=== PATIENT | female | born 1970 | race Caucasian/White ===

== ENCOUNTER 2021-05-06 15:04 | Emergency (ER) | payer OTHER, SELFPAY ==
[2021-05-06 15:14] VITALS: BP 112/64; PULSE 72; RESP 18; TEMP 36.8; O2SAT 98
--- NOTE | 2021-05-06 15:41 | ED.EAR ---
HPI - Ear Problem General Chief complaint: Ear Stated complaint: Ear Pain Time Seen by Provider: 05/06/21 15:41 Source: patient Mode of arrival: ambulatory Limitations: no limitations History of Present Illness HPI Narrative: Brandi Huff is a 50 yo female with PMH of HTN, depression, vascular with left ear pain for the past 2 to 3 days. She states that like she has fluid in her ear and is moving in her jaw Patient has not been vaccinated; states she had mastoiditis in the past that resulted in a hospitalization and she is concerned about any type of ear pain Related Data Home Medications Medication Instructions Recorded Confirmed amlodipine [Norvasc] 10 mg PO DAILY 05/06/21 05/06/21 citalopram 10 mg PO DAILY 05/06/21 05/06/21 Allergies Allergy/AdvReac Type Severity Reaction Status Date / Time codeine Allergy Unknown Verified 02/07/20 11:02 Review of Systems Review of Systems: CONSTITUTIONAL: Denies fever, chills, sweats. EYES: Denies visual changes, redness, discharge. ENT: Denies rhinorrhea, congestion, sore throat, left otalgia. CARDIOVASCULAR: Denies chest pain, palpitations, edema. RESPIRATORY: Denies dyspnea, wheezing, cough GASTROINTESTINAL: Denies abdominal pain, nausea, vomiting, diarrhea. GENITOURINARY: Denies dysuria, hematuria, abnormal discharge SKIN: Denies rash or itching. NEUROLOGIC: Denies numbness, or focal weakness. PSYCHIATRIC: Denies anxiety or depression. PMFSH Past Medical History Medical History Depression HTN (hypertension) Family History Family History (Updated 05/06/21 @ 15:49 by Bernadette Saunders CNP) Other Hypertension Social History Social History (Updated 05/06/21 @ 15:49 by Bernadette Saunders CNP) Smoking status: Never smoker Alcohol intake: current Comments At time of signature, I agree with nursing past medical, surgical, social and family history. There is no relevant family history pertinent to the presenting complaint. Exam Narrative: GENERAL: This is a well-nourished, well-developed patient, in mild distress. HEAD: normocephalic, atraumatic. EYES: Sclera clear/white. Vision is grossly intact. EARS: External ears normal, auditory canals erythema and without drainage, TMs normal without perforation. Hearing grossly intact. NOSE: External nose normal without nasal discharge, nares with redness, no rhinorrhea. THROAT: Mucous membranes moist, posterior pharynx mild erythema NECK: Neck supple, left-sided tenderness CARDIOVASCULAR: Regular rate and rhythm without murmurs, gallops, or rubs. RESPIRATORY: Clear to auscultation. Breath sounds equal bilaterally. No wheezes, rales, or rhonchi. GASTROINTESTINAL: Abdomen soft, SKIN: warm, intact with no suspicious lesions or rash, good texture and turgor. NEURO: awake, alert, and oriented to person, place and time. There were no obvious focal neurologic abnormalities. Steady gait EXTREMITIES: Normal range of motion. BACK: Nontender without deformity Course Course Emergency Course: Patient comes with left ear pain that started 3 to 4 days ago Amoxicillin 875 twice daily and Zyrtec recommended patient restart Flonase Vital Signs Vital signs: Vital Signs Temperature 98.3 F 05/06/21 15:14 Pulse Rate 72 05/06/21 15:14 Respiratory Rate 18 05/06/21 15:14 Blood Pressure 112/64 05/06/21 15:14 Pulse Oximetry 98 05/06/21 15:14 Temperature 98.3 F 05/06/21 15:14 Pulse Rate 72 05/06/21 15:14 Respiratory Rate 18 05/06/21 15:14 Blood Pressure 112/64 05/06/21 15:14 Pulse Oximetry 98 05/06/21 15:14 Medical Decision Making Differential Diagnosis Differential Diagnosis: Otitis media versus otitis externa versus eustachian tube dysfunction Vital Signs Vital Signs: Vital Signs Temperature 98.3 F 05/06/21 15:14 Pulse Rate 72 05/06/21 15:14 Respiratory Rate 18 05/06/21 15:14 Blood Pressure 112/64 05/06/21 15:14 Pulse
== END 2021-05-06 16:15 | disposition home or self-care (01) ==
PROVIDERS: Emergency Provider Nurse Practitioner
DX: H66.002 Acute suppurative otitis media without spontaneous rupture of ear drum, left ear (principal); R09.81 Nasal congestion; I10 Essential (primary) hypertension; F32.9 Major depressive disorder, single episode, unspecified
CPT/HCPCS: 99213; G0463

== ENCOUNTER 2022-07-14 13:20 | Emergency (ER) | payer OTHER, SELFPAY ==
[2022-07-14 13:28] VITALS: BP 175/93; PULSE 101; RESP 18; TEMP 36.6; O2SAT 99
--- NOTE | 2022-07-14 13:29 | ED.EAR ---
HPI - Ear Problem General Chief complaint: Ear Stated complaint: Left Ear Irritation Source: patient and RN notes reviewed Mode of arrival: ambulatory Limitations: no limitations History of Present Illness HPI Narrative: 51-year-old female presents concern for left ear pain. Reports several week history of nasal congestion, rhinorrhea. She reports chills. She denies drainage out of the ears, reports decreased hearing. MD Complaint: ear pain Related Data Home Medications Medication Instructions Recorded Confirmed amlodipine 10 mg tablet (Norvasc) 10 mg PO DAILY 05/06/21 07/14/22 citalopram 10 mg/5 mL oral solution 10 mg PO DAILY 05/06/21 07/14/22 Allergies Allergy/AdvReac Type Severity Reaction Status Date / Time codeine Allergy Unknown Other Verified 07/14/22 13:23 Review of Systems Review of Systems: CONSTITUTIONAL: Reports malaise, chills. Denies sweats, or fever. EYES: Denies visual changes, redness, or discharge. ENT: Reports rhinorrhea, congestion. Reports bilateral ear pain, worse CARDIOVASCULAR: Denies chest pain, palpitations, or edema. RESPIRATORY: Reports cough and wheezing. Denies dyspnea. GASTROINTESTINAL: Denies abdominal pain, nausea, vomiting, diarrhea SKIN: Denies rash or itching. MUSCULOSKELETAL: Denies myalgia. NEUROLOGIC: Denies headache. All systems reviewed & are unremarkable except as noted in HPI and below PMFSH Past Medical History Medical History (Updated 07/14/22 @ 13:39 by Nathaly Garcia NP) Depression HTN (hypertension) Family History Family History (System 03/09/22 @ 14:46 by Ha Matthews) Other Hypertension Social History Social History (System 03/09/22 @ 14:46 by Ha Matthews) Smoking status: Never smoker Alcohol intake: current Comments At time of signature, agree with nursing past medical, surgical, social and family history. There is no relevant family history pertinent to the presenting complaint Exam Narrative: GENERAL: Well-appearing, well-nourished, and in no acute distress. HEAD: Normocephalic EYES: PERRLA, conjunctivae clear ENT: Nares clear, turbinates edematous, clear discharge. Mucous membranes moist. TM purulence bulging bilaterally; no tragal tenderness. Oropharynx not erythematous without lesions. Tonsils not enlarged and without exudate, no drooling, no hoarseness, no trismus, uvula midline. NECK: Supple. No lymphadenopathy CHEST: Clear to auscultation, breath sounds equal. No wheezing, rhonchi, rales, or stridor. No respiratory distress, speaks in full sentences. Cough noted HEART: Regular rate and rhythm. No murmur heard. SKIN: Warm, dry, no rash. NEURO: Alert and oriented x3. PSYCH: Normal mood and affect Course Course Emergency Course: Patient is aware of diagnosis, understands and agrees to treatment plan. Anticipatory guidance given. Patient agrees to follow-up as directed and is aware of reasons to seek care at the emergency department. Portions of this record may have been created with voice recognition software Level of Care: Express Care Visit Vital Signs Vital signs: Reviewed. Medical Decision Making MDM Narrative Medical decision making narrative: Differential diagnosis considered: Dotson virus, strep pharyngitis, allergic rhinitis, upper respiratory tract infection, sinusitis, rhinosinusitis, nasopharyngitis. viral pharyngitis, otitis media, otitis externa, otitis effusion, cerumen impaction, foreign body. Exam findings show no acute concerns or changes; patient is non-toxic appearing and is in no distress. Patient is appropriate for outpatient treatment and follow-up. Critical Care Time Critical Care Time Critical Care Time: No Discharge Plan Discharge Clinical Impression: Bronchitis Otitis media Qualifiers: Otitis media type: suppurative Chronicity: acute Laterality: bilateral Recurrence: non-recurrent Spontaneous tympanic membrane rupture: without spontaneous rupture Qualified Code(s): H66.003 - Acute
== END 2022-07-14 13:45 | disposition home or self-care (01) ==
PROVIDERS: Emergency Provider Nurse Practitioner; PCP Family Medicine
DX: J40 Bronchitis, not specified as acute or chronic (principal); H66.003 Acute suppurative otitis media without spontaneous rupture of ear drum, bilateral; I10 Essential (primary) hypertension; F32.A Depression, unspecified
CPT/HCPCS: 99213; G0463

== ENCOUNTER 2023-02-28 19:16 | Emergency (ER) | payer OTHER, SELFPAY ==
--- NOTE | 2023-02-28 19:23 | ED.URI ---
HPI - URI/Sore Throat General Chief Complaint: Upper Respiratory Infection Stated Complaint: ear,nose,and throat problem Time Seen by Provider: 02/28/23 19:24 Source: patient Mode of arrival: ambulatory Limitations: no limitations History of Present Illness HPI Narrative: Isabel is a 52-year-old female patient presenting to the clinic today with complaints of sinus pressure, yellow nasal drainage, coughing up yellow phlegm, and bilateral ear pain. She reports she has had chronic sinusitis over the last year. Will supposed to see a ENT specialist however she decided not to go. She denies any fever chills but is complaining of ringing in her ears and worsening of sinus pressure. Has been taking aspirin and Benadryl to treat her symptoms. MD elicited complaint: cough, rhinorrhea, nasal congestion and sinus pain Related Data Allergies Allergy/AdvReac Type Severity Reaction Status Date / Time codeine Allergy Unknown Itching Verified 02/28/23 19:26 Review of Systems Review of Systems: Pertinent positives per HPI. Patient denies any fever, chills, rash, headache, visual changes, dizziness, cough, shortness of breath, chest pain, palpitations, nausea, vomiting, diarrhea, constipation, abdominal pain, or any urinary issues. PMFSH Past Medical History Medical History Depression HTN (hypertension) Family History Family History Other Hypertension Social History Social History Smoking status: Never smoker Alcohol intake: current Comments At the time of my signature, I reviewed and agree with the nursing past medical, surgical, social, and family history. There is no relevant family history pertinent to the patient complaint. Exam Narrative: General: Well-developed, well nourished, in no apparent distress Head: Normocephalic, atraumatic Eyes: Pupils equally round and reactive to light bilaterally, EOM intact, sclera and conjunctive clear, no discharge, lids normal Ears: TMs intact and clear, ear canals clear, no drainage, grossly hearing normal. Nose: Nares patent, yellow nasal discharge, severe inflammation to right nare mild inflammation to the left nare, no sinus tenderness. Mouth: Oral pharynx without lesions or masses, good dentition, MMM. Postnasal drip Neck: Supple, trachea midline, no enlargement of anterior or posterior cervical nodes, no thyroid masses or goiter palpable. Cardio: Regular rate and rhythm, s1 and s2 normal, no murmur appreciated. Resp: Clear to auscultation bilaterally, no rhonchi, rales, wheezing or rubs Course Course Emergency Course: Portions of this record may have been created with voice recognition software. Level of Care: Express Care Visit Vital Signs Vital signs: Vital signs reviewed MDM - URI/Sore Throat MDM Narrative Medical decision making narrative: At the time of visit patient is resting comfortably on exam table. I suspect patient has rhinosinusitis. Prescription for Augmentin and prednisone was sent to the pharmacy. Supportive measures were discussed with the patient and she voiced understanding of discharge instructions and agrees to treatment plan. Differential Diagnosis Differential diagnosis: Likely upper respiratory infection, otitis media, sinusitis, viral infection, bronchitis, influenza, pharyngitis and other (COVID) Discharge Plan Discharge Clinical Impression: Rhinosinusitis Patient Disposition: Home, Self-Care Condition: Stable Instructions: Antibiotic Form, Rhinosinusitis (ED) Additional Instructions: Take prescription medications only as prescribed Increase fluids and stay well hydrated Tylenol/motrin for pain/fever Flonase and OTC antihistamines as directed Vicks vapor rub to open sinuses Sinus rinses for congestion Cepacol spray, cou
[2023-02-28 19:25] VITALS: BP 184/87; PULSE 83; RESP 16; TEMP 37.4; O2SAT 99
[2023-02-28 19:27] VITALS: BP 184/87; PULSE 83; RESP 16; TEMP 37.4; O2SAT 99
== END 2023-02-28 19:40 | disposition home or self-care (01) ==
PROVIDERS: Emergency Provider Nurse Practitioner Family; PCP Emergency Medicine
DX: J32.9 Chronic sinusitis, unspecified (principal); I10 Essential (primary) hypertension
CPT/HCPCS: 99213; G0463

== ENCOUNTER → 2023-04-12 08:34 | Outpatient (CLI) | payer OTHER, SELFPAY ==
--- NOTE | ~2023-04-12 | XR_ITS ---
EXAMINATION: XR chest 2V DATE: 04/12/2023 08:55 INDICATION: Wheezing TECHNIQUE: frontal and lateral views of the chest were obtained. COMPARISON: Chest radiograph dated 04/21/16 FINDINGS: The lungs remain clear with no focal airspace opacities, pulmonary edema, pleural effusion or pneumot horax. The cardiomediastinal silhouette is normal. Thoracic spondylosis with chronic mild anterior we dging of a midthoracic vertebral body. IMPRESSION: 1. No acute cardiopulmonary disease. Reviewed, dictated and finalized at location A.
== END ==
PROVIDERS: PCP Emergency Medicine; Visit Provider Emergency Medicine
DX: R06.2 Wheezing (principal)
CPT/HCPCS: 71046

== ENCOUNTER 2023-05-02 10:32 | Observation (INO) | payer OTHER, SELFPAY ==
[2023-05-02] VITALS (21 sets, daily range): BP systolic 116–162; BP diastolic 74–90; PULSE 67–137; RESP 11–27; TEMP 36.2–37.3; O2SAT 96–100; BMI 24.2
--- NOTE | ~2023-05-02 | XR_ITS ---
EXAMINATION: XR chest 2V DATE: 05/02/2023 11:50 INDICATION: Chest pain TECHNIQUE: PA and lateral views of the chest are obtained. COMPARISON: 04/12/2023 FINDINGS: The lungs are free of acute opacities. No pleural effusion or pneumothorax. The cardiomedia stinal silhouette is normal. There is mild thoracic spondylosis. IMPRESSION: 1. No acute cardiopulmonary abnormality. Reviewed, dictated and finalized at location L.
--- NOTE | ~2023-05-02 | NM_ITS ---
EXAMINATION: NM tahir stress w perfusion DATE: 05/03/2023 10:40 INDICATION: Chest pain TECHNIQUE: Rest images were obtained following intravenous administration of 12.2 mCi Tc99m tetrofosm in (Myoview). The patient was infused intravenously with Lexiscan (Regadenoson). Then, 33.8 mCi Tc99m tetrofosmin (Myoview) was administered intravenously, and stress images were obtained. Data was mya nstructed into short axis and horizontal and vertical long axis SPECT images. Gated SPECT images were also obtained. COMPARISON: None. FINDINGS: There is no definite reversible or fixed perfusion abnormality to suggest ischemia or infar ction. There is normal left ventricular chamber size, wall motion and ejection fraction. Left ventr icular ejection fraction measures 52%. IMPRESSION: 1. Normal myocardial perfusion at rest and during stress. 2. Left ventricular ejection fraction measuring 52%. Reviewed, dictated and finalized at location A.
--- NOTE | 2023-05-02 10:33 | ECG_ITS ---
Measurements Intervals [place] Rate: 121 P: 62 ND: 139 QRS: 15 QRSD: 118 T: 129 QT: 327 QTc: 466 Interpretive Statements SINUS TACHYCARDIA LEFT BUNDLE BRANCH BLOCK ABNORMAL ECG NO PREVIOUS ECG AVAILABLE FOR COMPARISON Electronically Signed On 05-02-2023 12:23:04 CDT by Dickson Mart D.O.
[2023-05-02 10:53] LABS: Basophils Absolute Auto 0.1 K/mm3 (0.0-0.1); Basophils Percent Auto 0.6 % (0.2-1.2); Eosinophils Absolute Auto 0.9 K/mm3 (0-0.3); Eosinophils Percent Auto 6.1 % (0-4.4); Hematocrit 48.3 % (37.0-47.0); Hemoglobin 16.7 g/dL (12.0-15.0); Immature Granulocyte Absolute 0.05 K/mm3 (0.00-0.031); Immature Granulocyte Percent A 0.3 % (0-0.5); Lymphocytes Absolute Auto 2.76 K/mm3 (0.9-3.2); Lymphocytes Percent Auto 18.9 % (18.3-44.2); Mean Corpuscular HGB Conc 34.6 g/dl (32-36); Mean Corpuscular Hemoglobin 30.5 pg (26-34); Mean Corpuscular Volume 88.1 fl (80-100); Mean Platelet Volume 11.7 fl (7.4-10.4); Monocytes Absolute Auto 0.9 K/mm3 (0.1-0.6); Monocytes Percent Auto 5.8 % (2.6-8.5); Neutrophils Absolute Auto 9.9 K/mm3 (1.3-6.7); Neutrophils Percent Auto 68.3 % (45.5-73.1); Platelet Count Result 317 k/mm3 (150-375); Red Blood Count 5.48 M/mm3 (4.2-5.4); Red Cell Distribution Width 11.9 % (11.5-14.5); White Blood Count 14.6 K/mm3 (4.5-10.0)
--- NOTE | 2023-05-02 10:59 | ECG_ITS ---
Measurements Intervals [place] Rate: 127 P: 64 MN: 155 QRS: 11 QRSD: 120 T: 129 QT: 312 QTc: 454 Interpretive Statements SINUS TACHYCARDIA LEFT BUNDLE BRANCH BLOCK ABNORMAL ECG COMPARED TO ECG 05/02/2023 10:39:49 NO SIGNIFICANT CHANGES Electronically Signed On 05-02-2023 12:23:16 CDT by Dickson Mart D.O.
--- NOTE | 2023-05-02 10:59 | ED.CHESTPAIN ---
HPI - Chest Pain General Chief Complaint: Chest Pain Stated Complaint: chest pain Time Seen by Provider: 05/02/23 10:47 History of Present Illness HPI narrative: 52-year-old female present to the emergency department for evaluation of chest pain been going on since last night. Patient denies any prior history of coronary artery disease but did have a stress test a few years ago. Patient does have history of high cholesterol hypertension. Patient reports he began having some left-sided chest pain last night that radiated to her back into her left arm Related Data Home Medications Medication Instructions Recorded Confirmed amlodipine 10 mg tablet 10 mg PO DAILY 05/02/23 05/02/23 atorvastatin 10 mg tablet (Lipitor) 10 mg PO DAILY 05/02/23 05/02/23 fluticasone propionate 50 2 spray intranasal DAILY PRN 05/02/23 05/02/23 mcg/actuation nasal Allergy Symptoms spray,suspension Allergies Allergy/AdvReac Type Severity Reaction Status Date / Time codeine Allergy Unknown Itching Verified 05/02/23 11:00 Review of Systems Review of Systems: All systems reviewed & are unremarkable except as noted in HPI and below PMFSH Past Medical History Medical History (Updated 05/02/23 @ 16:02 by Scottie Rubio MD) Depression HTN (hypertension) Family History Family History Mother Cerebrovascular accident Hypertension Grandparent Diabetes mellitus Hypertension Social History Social History Smoking status: Never smoker Alcohol intake: never Substance use: never Lack of Transportation: No Lack of Food: Never True Current Housing: I Have Housing Concerned About Future Housing: No Difficulty Paying Gas/Electric Bills: No Difficulty Paying for Meds: No Currently Unemployed: No Education: Grade School Difficulty w/ Childcare or Family Care: No Spiritual care concerns: No Exam Narrative: APPEARANCE: Well appearing, no pain, no distress, well-nourished. HEAD: normocephalic, atraumatic. EYES: PERRLA/EOMI, conjunctivae clear. NOSE: Normal no drainage NECK: Supple. No adenopathy, no masses. RESPIRATORY: Airway patent, respirations nonlabored. Clear to auscultation bilaterally, no rales, rhonchi, wheezing. CARDIOVASCULAR: Regular rate and rhythm without murmurs rubs or gallops. ABDOMINAL: Soft, nontender, nondistended, normal bowel sounds MUSCULOSKELETAL: Moves all extremities. Strength/ROM intact, No edema, No calf tenderness. NEURO: Alert. Cranial nerves II through XII intact. Grossly intact SKIN: Warm, dry. Normal Color Course Course Emergency Course: 52 old female presented ED for evaluation of left-sided chest pain. EKG showed a new left bundle branch. Cardiology was consulted for concern of STEMI equivalent. Clinically patient was well-appearing and was decided to wait the additional cardiac work-up. Patient's troponins were not elevated. Patient's D-dimer was not elevated. Patient did feel improved with the nitro and Nitropaste was added. Cardiology was consulted. Case was discussed with hospitalist and patient was accepted for admission to IMU. Patient was updated with results of her work-up and was stable at time of admission. Vital Signs Vital signs: Vital Signs Temperature 99.2 F 05/02/23 10:46 Pulse Rate 137 H 05/02/23 10:46 Respiratory Rate 22 H 05/02/23 10:46 Blood Pressure 162/84 H 05/02/23 10:46 Pulse Oximetry 100 05/02/23 10:46 Oxygen Delivery Room Air 05/02/23 10:46 Temperature 97.1 F L 05/02/23 16:30 Pulse Rate 110 H 05/02/23 18:00 Respiratory Rate 18 05/02/23 16:30 Blood Pressure 116/76 05/02/23 16:30 Pulse Oximetry 96 05/02/23 16:30 Oxygen Delivery Room Air 05/02/23 12:04 MDM - Chest Pain Differential Diagnosis Differential diagnosis: Likely stable angina, atypical chest pain and chest pain Lab Data Attestation:
[2023-05-02] MEDS: ASPIRIN 81 MG CHEWABLE TABLET 324 MG PO (11:01)
[2023-05-02 11:03] LABS: Alanine Aminotransferase 17 U/L (6-35); Albumin Level 5.2 g/dL (3.5-5.1); Alkaline Phosphatase 86 U/L (38-126); Anion Gap 13 mmol/L (8-16); Aspartate Amino Transferase 25 U/L (14-36); Bilirubin,Total 0.6 mg/dL (0.2-1.3); Blood Urea Nitrogen 10 mg/dL (7-17); Calcium 9.9 mg/dL (8.4-10.2); Carbon Dioxide 22 mmol/L (22-30); Chloride 104 mmol/L (98-107); Estimated CRCL calculation 69 ml/min; Estimated Glomerular Filt Rate > 60; Glucose 109 mg/dL (65-110); Lipase 96 U/L (23-300); Potassium 3.6 mmol/L (3.4-5.0); Sodium 139 mmol/L (137-145)
[2023-05-02] MEDS: NITROGLYCERIN SL 0.4 MG TABLET SUBLINGUAL (11:05)
--- NOTE | 2023-05-02 11:13 | PC.NURSE ---
Pt recieved a second dose of 0.4mg nitro tab after she stated that the 1st tablet had her chest pain go from a 3/10 to a 2/10.
[2023-05-02 11:14] LABS: Troponin I < 0.012 ng/mL (0.000-0.034)
--- NOTE | 2023-05-02 11:19 | PC.NURSE ---
Pt reports chest pain is a 0 out of ten at this time
[2023-05-02 11:20] LABS: INR 0.9; Partial Thromboplastin Time 25.8 SECONDS (22.3-36.8); Prothrombin Time 12.8 Seconds (11.1-14.7)
[2023-05-02 11:47] LABS: D Dimer < 0.27 ug/mL (<0.48)
[2023-05-02] MEDS: ACETAMINOPHEN 500 MG TABLET 1000 MG PO (12:22)
[2023-05-02] MEDS: NITROGLYCERIN OINTMENT 1 INCH DOSE TRANSDERM (12:23)
--- NOTE | 2023-05-02 13:54 | ADMGEN ---
This patient, Brandi Huff, was admitted to IMU Room 209-01. Patient/family oriented to hospital policies and general routines including ID bracelet, bed and alarms, visiting hours, pain management, procedures, bathroom and other care routines, personal items, smoking policy, room service/diet, and visiting hours. Information on how to activate the Rapid Response Team has been discussed. Patient/Family are encouraged to report perceived risks to care and to ask questions if they do not understand what they are told or what they should do.
[2023-05-02 14:59] LABS: Troponin I < 0.012 ng/mL (0.000-0.034)
--- NOTE | 2023-05-02 15:58 | PM.CNCAR ---
Assessment and Plan Assessment and plan (1) Chest pain: Code(s): R07.9 - Chest pain, unspecified Status: Acute Assessment and Plan: Atypical chest pain. Troponins negative x 2. EKG with LBBB of unknown chronicity. Risk factors for heart disease: Hypertension and hyperlipidemia. Given atypical chest pain + LBBB + risk factors for heart disease, will obtain Lexiscan 05/03. Patient to be NPO at midnight. (2) Left bundle branch block: Code(s): I44.7 - Left bundle-branch block, unspecified Status: Acute Assessment and Plan: Unknown chronicity. Last EKG from 2015 showed normal QRS duration. On telemetry thus far, it appears that her LBBB is intermittent. (3) Hyperlipidemia: Code(s): E78.5 - Hyperlipidemia, unspecified Status: Acute Assessment and Plan: Check lipid panel. Continue statin. (4) HTN (hypertension): Code(s): I10 - Essential (primary) hypertension Status: Acute Assessment and Plan: Continue home medication of Amlodipine 10mg. History of Present Illness History of Present Illness Consult date/time: 05/02/23 15:58 Requesting physician: Eder Paul MD Consult reason: chest pain Reason For Visit: New Left Bundle/Chest Pain Narrative: We are consulted for chest pain. This is a pleasant 52 year old female with hypertension and hyperlipidemia who presented to [facility] with chest pain. Patient states she was on the couch yesterday evening when she developed a fluttering sensation around 9PM. Also had chest pressure with it. Some pain in her left arm. Patient noted that if she turned/laid on her left side, it made her feel better. Had ongoing symptoms throughout the night. Was seeing her PCP this morning who instructed her to come to the ED. Upon arrival to the ED, STEMI was activated due to LBBB and chest pain. Upon my evaluation of the EKG and the patient at bedside, I canceled the STEMI alert. Troponins are negative x 2. Patient states she is feeling better since this morning. No active chest pain or fluttering sensation. CXR without acute findings. Patient denies any family history of heart disease. Does not smoke. Has never smoked but is exposed to second hand smoke. Review of Systems Review of Systems: All systems reviewed & are unremarkable except as noted in HPI and below (HPI) PMFSH Past Medical History Medical History (Updated 05/02/23 @ 16:02 by Scottie Rubio MD) Depression HTN (hypertension) Family History Family History Mother Cerebrovascular accident Hypertension Grandparent Diabetes mellitus Hypertension Social History Social History Smoking status: Never smoker Alcohol intake: never Substance use: never Lack of Transportation: No Lack of Food: Never True Current Housing: I Have Housing Concerned About Future Housing: No Difficulty Paying Gas/Electric Bills: No Difficulty Paying for Meds: No Currently Unemployed: No Education: Grade School Difficulty w/ Childcare or Family Care: No Spiritual care concerns: No Meds Home Medications and Allergies Home Medications Medication Instructions Recorded Confirmed Type amlodipine 10 mg tablet 10 mg PO DAILY 05/02/23 05/02/23 History atorvastatin 10 mg tablet (Lipitor) 10 mg PO DAILY 05/02/23 05/02/23 History fluticasone propionate 50 2 spray intranasal DAILY PRN 05/02/23 05/02/23 History mcg/actuation nasal Allergy Symptoms spray,suspension Allergies Allergy/AdvReac Type Severity Reaction Status Date / Time codeine Allergy Unknown Itching Verified 05/02/23 11:00 Vital Signs Vital Signs - 24 hr 05/02/23 10:46 05/02/23 11:12 05/02/23 11:18 Temperature 37.3 C Pulse Rate 137 H 110 H 126 H Respiratory Rate 22 H 19 14 Blood Pressure 162/84 H 129/80 140/81 Pulse Oximetry 100 98 96 Oxygen Delivery Room Air
[2023-05-02 17:41] LABS: Cholesterol 155 mg/dL (0-200); HDL Direct 56 mg/dL; Triglycerides 75 mg/dL (<150)
[2023-05-02 17:52] LABS: LDL Cholesterol Direct 80 mg/dL
[2023-05-02 17:53] LABS: Troponin I < 0.012 ng/mL (0.000-0.034)
[2023-05-02 18:56] LABS: Hemoglobin A1C 5.2 % (<5.7)
--- NOTE | 2023-05-02 22:51 | PM.IMHP ---
H&P: HPI History of Present Illness Date/Time: 05/02/23 19:30 Chief Complaint: Chest pain. Narrative: This is a pleasant 52-year-old female with hypertension and hyperlipidemia presented to the emergency department via private vehicle for evaluation of chest pain. The patient provides the following history. Shortly after going to bed last evening she developed a pressure-like sensation in the anterior chest associated with fluttering, nausea, and mild shortness of breath. She had similar symptoms this morning and an aching discomfort in her arm and she came in for evaluation. With further questioning she also endorses increasing fatigue and shortness of breath on exertion over the past couple of weeks. She denies syncope, near syncope, pleuritic pain, orthopnea, paroxysmal nocturnal dyspnea, lower extremity edema, and vomiting. her heart rate was in the 130s on arrival to the emergency department. EKG showed a sinus tachycardia with left bundle-branch block; no EKG was available for comparison. Her initial troponin was normal. CMP and CBC were pretty normal with a few outliers to include a total protein of 9.0, albumin 5.2, WBC count 14.6, hemoglobin 16.7. In the ED she was given aspirin 324 mg x1 and she is being admitted in this setting for close monitoring and Cardiology consultation. She is scheduled to have a stress test tomorrow and is a bit anxious about that. She has no known history of cardiac disease or dysrhythmia. She drinks about [address] Pepper a day. She denies significant alcohol use. She has no known history of thyroid disease or venous thromboembolism. Review of Systems Review of Systems: Twelve systems were reviewed and are negative except for as per HPI. [facility] Past Medical History Medical History Depression Hypertension Surgical History Surgical History History of benign breast biopsy History of section History of right knee surgery Family History Family History Mother Cerebrovascular accident Hypertension Grandparent Diabetes mellitus Hypertension Social History Social History Smoking status: Never smoker Alcohol intake: never Substance use: never Lack of Transportation: No Lack of Food: Never True Current Housing: I Have Housing Concerned About Future Housing: No Difficulty Paying Gas/Electric Bills: No Difficulty Paying for Meds: No Currently Unemployed: No Education: Grade School Difficulty w/ Childcare or Family Care: No Spiritual care concerns: No Meds Home Medications and Allergies Home Medications Medication Instructions Recorded Confirmed Type amlodipine 10 mg tablet 10 mg PO DAILY 05/02/23 05/02/23 History atorvastatin 10 mg tablet (Lipitor) 10 mg PO DAILY 05/02/23 05/02/23 History fluticasone propionate 50 2 spray intranasal DAILY PRN 05/02/23 05/02/23 History mcg/actuation nasal Allergy Symptoms spray,suspension Allergies Allergy/AdvReac Type Severity Reaction Status Date / Time codeine Allergy Unknown Itching Verified 05/02/23 11:00 Vital Signs Vital Signs - 24 hr 05/02/23 10:46 05/02/23 11:12 05/02/23 11:18 Temperature 99.2 F Pulse Rate 137 H 110 H 126 H Respiratory Rate 22 H 19 14 Blood Pressure 162/84 H 129/80 140/81 Pulse Oximetry 100 98 96 Oxygen Delivery Room Air 05/02/23 12:07 05/02/23 12:25 05/02/23 11:04 Temperature Pulse Rate 97 85 116 H Respiratory Rate 13 15 19 Blood Pressure 153/85 H 153/90 H Pulse Oximetry 96 98 98 Oxygen Delivery 05/02/23 11:17 05/02/23 11:19 05/02/23 11:30 Temperature Pulse Rate 126 H 129 H 106 H Respiratory Rate 27 H 11 L 14 Blood Pressure 140/81 128/83 Pulse Oximetry 97 96 98 Oxygen Delivery 05/02/23 11:31
[2023-05-02] MEDS: SODIUM CHLORIDE 0.9% IV 1,000 ML 100 ML IV CONT (23:46)
[2023-05-02] MEDS: ALPRAZolam (*CRX) 0.25 MG TABLET PO (23:46)
[2023-05-03] VITALS: PULSE 74
--- NOTE | 2023-05-03 | EST_ITS ---
Patient Info Name: Brandi Huff Age: 52 years : 1970 Gender: Female Ht: 61 in Wt: 128 lbs BSA: 1.59 m2 HR: 83 bpm BP: 152 / 93 mmHg Heart Rhythm: Sinus Rhythm Exam Date: 05/03/2023 9:28 AM Exam Location: [facility] Stress Patient Status: Inpatient Admit Date: 05/02/2023 Staff Ordering Physician: Scottie Rubio MD Attending Provider: Deshawn Schmid MD Exercise Technologist: Jessi Alejandro CT Exercise Physician: Scottie Rubio MD Exam Type: CA stress tahir w NM Study Info Indications R07.9 - Chest pain, unspecified A regadenoson stress test was performed. Summary 1. Non-diagnostic ECG due to left bundle branch block. 2. Please correlate with nuclear medicine images, reported separately. 3. Stress test supervised by Scottie Rubio MD. Stress test interpreted by Scottie Rubio MD. Protocol: Lexiscan Stress ECG Details Stage: REST Duration (min): 0 min : 49 sec HR (bpm): 89 SBP (mmHg): 152 DBP (mmHg): 93 Stage: REST Duration (min): 9 min : 3 sec HR (bpm): 95 SBP (mmHg): 152 DBP (mmHg): 93 Stage: STAGE 1 Duration (min): 1 min : 0 sec HR (bpm): 133 SBP (mmHg): 179 DBP (mmHg): 86 Stage: RECOVERY Duration (min): 1 min : 0 sec HR (bpm): 126 SBP (mmHg): 179 DBP (mmHg): 86 Stage: RECOVERY Duration (min): 2 min : 0 sec HR (bpm): 123 SBP (mmHg): 179 DBP (mmHg): 86 Stage: RECOVERY Duration (min): 3 min : 0 sec HR (bpm): 114 SBP (mmHg): 152 DBP (mmHg): 86 Stage: RECOVERY Duration (min): 3 min : 6 sec HR (bpm): 113 SBP (mmHg): 152 DBP (mmHg): 86 Rest HR: 95 bpm Peak HR: 133 bpm Rest Sys BP: 152 mmHg Peak Sys BP: 179 mmHg Max Pred HR: 166 bpm % Max Pred HR: 80 % Target HR: 141 bpm Max RPP: 23,807 bpm*mmHg Total Time: 1 min : 0 sec Rest Lebron BP: 93 mmHg Peak Lebron BP: 86 mmHg Total Dose: 0.4 mg Resting ECG Sinus rhythm. No left bundle branch block on rest EKG. Stress ECG Sinus tachycardia. Left bundle branch block. Non-diagnostic ECG due to left bundle branch block. Arrhythmias None. Report Signatures
[2023-05-03 04:00] VITALS: BP 145/89; PULSE 67; PULSE 73; RESP 18; TEMP 36.4; O2SAT 98
[2023-05-03 05:16] LABS: Hematocrit 42.4 % (37.0-47.0); Hemoglobin 14.4 g/dL (12.0-15.0); Mean Corpuscular Hemoglobin 30.3 pg (26-34); Mean Corpuscular Volume 89.3 fl (80-100); Mean Platelet Volume 11.8 fl (7.4-10.4); Platelet Count Result 258 k/mm3 (150-375); Red Blood Count 4.75 M/mm3 (4.2-5.4); Red Cell Distribution Width 11.7 % (11.5-14.5); White Blood Count 12.6 K/mm3 (4.5-10.0)
[2023-05-03 05:27] LABS: Anion Gap 7 mmol/L (8-16); Blood Urea Nitrogen 12 mg/dL (7-17); Calcium 8.8 mg/dL (8.4-10.2); Carbon Dioxide 23 mmol/L (22-30); Chloride 108 mmol/L (98-107); Estimated CRCL calculation 69 ml/min; Estimated Glomerular Filt Rate > 60; Glucose 109 mg/dL (65-110); Magnesium 2.3 mg/dL (1.6-2.3); Potassium 3.9 mmol/L (3.4-5.0); Sodium 138 mmol/L (137-145)
[2023-05-03 07:29] VITALS: BP 155/84; PULSE 77; RESP 16; TEMP 36.3; O2SAT 100
[2023-05-03 08:00] VITALS: PULSE 72
[2023-05-03] MEDS: ASPIRIN 81 MG CHEWABLE TABLET PO (08:31)
[2023-05-03] MEDS: amLODIPine BESYLATE 5 MG TABLET 10 MG PO (08:31)
[2023-05-03] MEDS: ATORVASTATIN 10 MG TABLET PO (08:31)
[2023-05-03] MEDS: FLUTICASONE PROPIONATE 0.05% NA SPR 16 GM BTL (*BKC) 2 SPRAY NASAL (08:32)
--- NOTE | 2023-05-03 09:50 | PM.PNCARD ---
Progress Note: A&P Assessment and Plan (1) Chest pain: Code(s): R07.9 - Chest pain, unspecified Status: Acute Assessment and Plan: Atypical chest pain. Troponins negative x 3. EKG with LBBB of unknown chronicity. Risk factors for heart disease: Hypertension and hyperlipidemia. Given atypical chest pain + LBBB + risk factors for heart disease, will obtain Lexiscan 05/03. Patient to be NPO at midnight. If Lexiscan normal, patient can be discharged home. (2) Left bundle branch block: Code(s): I44.7 - Left bundle-branch block, unspecified Status: Acute Assessment and Plan: Unknown chronicity. Last EKG from 2016 showed normal QRS duration. On telemetry thus far, it appears that her LBBB is intermittent. (3) Hyperlipidemia: Code(s): E78.5 - Hyperlipidemia, unspecified Status: Acute Assessment and Plan: LDL 80. Continue statin. (4) HTN (hypertension): Code(s): I10 - Essential (primary) hypertension Status: Acute Assessment and Plan: Continue home medication of Amlodipine 10mg. Plan Recommendations/plan discussed with Hospitalist. Subjective Date/time seen: 05/03/23 09:50 Interval history: Reason for visit: Chest pain HPI: This is a pleasant 52 year old female with hypertension and hyperlipidemia who presented to [place] [facility] with chest pain. Patient states she was on the couch yesterday evening when she developed a fluttering sensation around 9PM. Also had chest pressure with it. Some pain in her left arm. Patient noted that if she turned/laid on her left side, it made her feel better. Had ongoing symptoms throughout the night. Was seeing her PCP this morning who instructed her to come to the ED. Upon arrival to the ED, STEMI was activated due to LBBB and chest pain. Upon my evaluation of the EKG and the patient at bedside, I canceled the STEMI alert. Troponins are negative x 2. Patient states she is feeling better since this morning. No active chest pain or fluttering sensation. CXR without acute findings. Patient denies any family history of heart disease. Does not smoke. Has never smoked but is exposed to second hand smoke. Date of service 05/03: Feeling well this morning. Lexiscan today. Review of Systems Review of Systems: No chest pain. No palpitations. No shortness of breath. Exam Const: General: comfortable and no acute distress Eyes: General: appearance normal, both eyes and all related structures Sclera: sclerae normal Resp: Effort & Inspection: normal respiratory effort Cardio: Rate: regular rate Rhythm: regular rhythm Skin: General skin exam: normal color Psych: Mental Status: mental status grossly normal Affect: normal affect Objective Data Vital Signs Vital Signs: Vital Signs - 24 hr 05/02/23 10:46 05/02/23 11:12 05/02/23 11:18 Temperature 37.3 C Pulse Rate 137 H 110 H 126 H Respiratory Rate 22 H 19 14 Blood Pressure 162/84 H 129/80 140/81 Pulse Oximetry 100 98 96 Oxygen Delivery Room Air 05/02/23 12:07 05/02/23 12:25 05/02/23 11:04 Temperature Pulse Rate 97 85 116 H Respiratory Rate 13 15 19 Blood Pressure 153/85 H 153/90 H Pulse Oximetry 96 98 98 Oxygen Delivery 05/02/23 11:17 05/02/23 11:19 05/02/23 11:30 Temperature Pulse Rate 126 H 129 H 106 H Respiratory Rate 27 H 11 L 14 Blood Pressure 140/81 128/83 Pulse Oximetry 97 96 98 Oxygen Delivery 05/02/23 11:31 05/02/23 11:59 05/02/23 12:04 Temperature Pulse Rate 117 H 97 Respiratory Rate 23 H 22 H Blood Pressure Pulse Oximetry 97 97 100 Oxygen Delivery Room Air 05/02/23 12:59 05/02/23 13:19 05/02/23 13:42 Temperature 36.3 C L Pulse Rate 84 81 86 Respiratory Rate 12 14 Blood Pressure 124/78 116/75 135/88 Pulse Oximetry 99 98 97 Oxygen Delivery 05/02/23 14:00 05/02/23 16:30 05/02/23 16:00 Temperature 36.2 C L Pulse Rate 85 86 84 Respiratory Rate 18 Blood Pressure 116/76 Pulse
[2023-05-03 10:00] VITALS: PULSE 91
[2023-05-03] MEDS: ONDANSETRON INJ 4 MG/2 ML VIAL IV PUSH (10:27)
[2023-05-03] MEDS: ACETAMINOPHEN 325 MG TABLET 650 MG PO (10:27)
--- NOTE | 2023-05-03 10:55 | PC.NURSE ---
Pt to river at 0838, returned at 1030. Pt nauseated and c/o headache, gave medications per physicians orders. She is now resting with no complaints.
--- NOTE | 2023-05-03 11:41 | PM.DS ---
DS: Admitting Diagnosis Discharge Date May 03, 2023 Admitting Diagnosis Atypical chest pain DS: Discharge Diagnosis Discharge Diagnosis (1) Chest pain: Code(s): R07.9 - Chest pain, unspecified Status: Acute (2) Left bundle branch block: Code(s): I44.7 - Left bundle-branch block, unspecified Status: Acute (3) Hypertension: Code(s): I10 - Essential (primary) hypertension Status: Acute (4) Hyperlipidemia: Code(s): E78.5 - Hyperlipidemia, unspecified Status: Acute Plan The patient presented to the emergency department for evaluation of chest pain as detailed in HPI. Labs, imaging, EKG, and all reports were personally reviewed. EKG showed a left bundle branch block of unknown chronicity. Initial troponin was normal and will be trended. Continue aspirin 81 mg daily and atorvastatin 10 mg daily. She is on amlodipine 10 mg daily for blood pressure and that seems to be well controlled at this time. She was tachycardic on arrival, likely due to anxiety. Pulmonary embolism seems unlikely. She does drink an awful lot of caffeine. Check TSH and monitor. The hemoglobin, total protein, and albumin are all a bit elevated suggesting mild dehydration. Give 1 L normal saline overnight. DS: Summary Hospital Course Hospital Course: Admitted for chest pain, negative stress test. Appreciate Cardiology input. No further currently echo workup needed Time Spent with Patient Time attestation: Total time spent providing and/or coordinating discharge services: Exam Const: Other: Well-developed female sitting up in bed in no acute distress. Weight: 50.1 kg. BMI: 24.2. HENMT: Other: Normocephalic, atraumatic. Nares patent bilaterally. Tacky mucous membranes. Eyes: Other: Pupils are reactive. Extraocular motions intact. Sclerae anicteric. Neck: Other: Supple. Chest: Other: No tenderness to palpation over the chest wall. Resp: Other: Respirations are nonlabored and lungs are clear to auscultation. Cardio: Other: Regular rate rhythm with normal S1-S2. GI: Other: Abdomen is soft, nontender, and nondistended with positive bowel sounds. Skin: Other: Warm and dry. No rash or lesion on limited exam. Neuro: Other: Alert. Cranial nerves 2-12 are grossly intact. No gross focal deficits to casual conversation. Extrem: Other: No cyanosis, clubbing, or edema. Peripheral pulses intact. Negative Eloise sign bilaterally. Psych: Other: Pleasant and cooperative. Appropriate mood and affect. DS: Data Data Completed and Pending Labs on day of discharge: Labs from last 24 hours 05/03/23 05/02/23 05/02/23 04:39 16:59 14:02 WBC 12.6 H RBC 4.75 Hgb 14.4 Hct 42.4 MCV 89.3 MCH 30.3 MCHC 34.0 RDW 11.7 Plt Count 258 MPV 11.8 H PT INR APTT D-Dimer Sodium 138 Potassium 3.9 Chloride 108 H Carbon Dioxide 23 Anion Gap 7 L BUN 12 Creatinine 0.60 L Estim Creat Clear Calc 69 Estimated GFR > 60 Glucose 109 Hemoglobin A1c 5.2 Calcium 8.8 Magnesium 2.3 Troponin I < 0.012 < 0.012 Triglycerides 75 Cholesterol 155 LDL Cholesterol Direct 80 HDL Direct 56 TSH 1.540 TSH (Reflex) 1.950 05/02/23 10:58 WBC RBC Hgb Hct MCV MCH MCHC RDW Plt Count MPV PT 12.8 INR 0.9 APTT 25.8 D-Dimer < 0.27 Sodium Potassium Chloride Carbon Dioxide Anion Gap BUN Creatinine Estim Creat Clear Calc Estimated GFR Glucose Hemoglobin A1c Calcium Magnesium Troponin I Triglycerides Cholesterol LDL Cholesterol Direct HDL Direct TSH TSH (Reflex) Discharge Plan Discharge Attending physician on discharge: Todd Carmona Consulting providers: Scottie Rubio Discharging Clinician: Todd Carmona Patient Disposition: Home, Self-Care Activity: as tolerat
[2023-05-03 12:00] VITALS: BP 145/90; PULSE 83; RESP 16; O2SAT 98
--- NOTE | 2023-05-03 14:47 | PC.NURSE ---
On 05/03/23, the student, Val FERNANDO [facility], provided care on this patient. I have reviewed the student's work and agree with the findings.
== END 2023-05-03 12:30 | disposition home or self-care (01) ==
LOC: ANHED 12:43 → ANHIMU 05-03 11:40
PROVIDERS: Internal Medicine; Physician Assistant; Admitting Provider Hospitalist; Emergency Provider Emergency Medicine; PCP Emergency Medicine; Visit Provider Chiropractor
DX: R07.9 Chest pain, unspecified (principal); I44.7 Left bundle-branch block, unspecified; I10 Essential (primary) hypertension; E78.5 Hyperlipidemia, unspecified; Z79.899 Other long term (current) drug therapy
CPT/HCPCS: 36415; 71046; 78452; 80048; 80053; 80061; 83036; 83690; 83735; 84443; 84484; 85025; 85027; 85380; 85610; 85730; 93005; 93017; 96374; 99285; A9270; A9502; G0378; G0379; J2405; J2785; J7030

== ENCOUNTER 2023-05-04 17:53 | Emergency (ER) | payer OTHER, SELFPAY ==
--- NOTE | ~2023-05-04 | XR_ITS ---
EXAMINATION: XR chest 2V DATE: 05/04/2023 18:18 INDICATION: Intermittent chest pain and pressure TECHNIQUE: PA and lateral views of the chest were obtained. COMPARISON: Chest radiograph dated 05/02/2023 FINDINGS: The lungs remain clear with no focal airspace opacities, pulmonary edema, pleural effusion or pneumot horax. The cardiomediastinal silhouette is normal. Mild thoracic spondylosis. Minimal anterior wedgin g of a midthoracic vertebral body likely T7. IMPRESSION: 1. No acute cardiopulmonary disease. Reviewed, dictated and finalized at location A.
--- NOTE | ~2023-05-04 | CT_ITS ---
EXAMINATION: CT abdomen pelvis w con DATE: 05/04/2023 20:23 INDICATION: Left upper quadrant abdominal pain for one day TECHNIQUE: Computed tomography (CT) of the abdomen and pelvis was performed without intravenous contr ast. Automated exposure control and iterative reconstruction technique were employed. Exam dose: 320 .19 mGy-cm total exam DLP. COMPARISON: None. FINDINGS: The lung bases are clear of infiltrate or consolidation. Normal heart size. No pericardial or pleural effusion. The liver, gallbladder, bile ducts, spleen, pancreas, adrenal glands are unremarkable. Approximately 6 mm right renal cyst and 8 mm left renal cyst. No urinary tract calculus or hydrourete ronephrosis. There is diffuse thickening and urinary bladder wall which may be due to underdistention; cystitis is not excluded. The uterus and adnexal areas are unremarkable. There is atherosclerotic calcification but normal caliber of the abdominal aorta. No intraperitoneal or retroperitoneal or pelvic mass lesion or adenopathy or ascites is detected. No evidence of appendicitis. Diverticulosis of the colon; no CT evidence of diverticulitis. No bowel obstruction or intraperitoneal free air. Small fat containing umbilical hernia. No suspicious osteolytic or osteoblastic lesions. IMPRESSION: Bilateral renal cysts Normal appendix Mild colonic diverticulosis; no evidence of diverticulitis Reviewed, dictated and finalized at Location A. Reviewed, dictated and finalized at location A.
--- NOTE | 2023-05-04 17:55 | ECG_ITS ---
Measurements Intervals Hood Rate: 101 P: 116 NC: 133 QRS: 182 QRSD: 127 T: 54 QT: 362 QTc: 471 Interpretive Statements SINUS TACHYCARDIA ARM LEADS REVERSED LEFT BUNDLE BRANCH BLOCK ABNORMAL ECG COMPARED TO ECG 05/02/2023 10:55:18 HEART RATE HAS DECREASED Electronically Signed On 05-04-2023 18:52:49 CDT by Dickson Mart D.O.
[2023-05-04 18:05] VITALS: BP 184/79; PULSE 93; RESP 16; TEMP 37.1; O2SAT 97
[2023-05-04 18:15] LABS: Basophils Absolute Auto 0.1 K/mm3 (0.0-0.1); Basophils Percent Auto 0.5 % (0.2-1.2); Eosinophils Absolute Auto 0.2 K/mm3 (0-0.3); Eosinophils Percent Auto 1.1 % (0-4.4); Hematocrit 45.1 % (37.0-47.0); Hemoglobin 15.5 g/dL (12.0-15.0); Immature Granulocyte Absolute 0.07 K/mm3 (0.00-0.031); Immature Granulocyte Percent A 0.4 % (0-0.5); Lymphocytes Absolute Auto 1.68 K/mm3 (0.9-3.2); Lymphocytes Percent Auto 9.3 % (18.3-44.2); Mean Corpuscular HGB Conc 34.4 g/dl (32-36); Mean Corpuscular Hemoglobin 30.2 pg (26-34); Mean Corpuscular Volume 87.7 fl (80-100); Mean Platelet Volume 11.7 fl (7.4-10.4); Monocytes Absolute Auto 0.8 K/mm3 (0.1-0.6); Monocytes Percent Auto 4.5 % (2.6-8.5); Neutrophils Absolute Auto 15.1 K/mm3 (1.3-6.7); Neutrophils Percent Auto 84.2 % (45.5-73.1); Platelet Count Result 304 k/mm3 (150-375); Red Blood Count 5.14 M/mm3 (4.2-5.4); Red Cell Distribution Width 11.8 % (11.5-14.5)
[2023-05-04 18:26] LABS: Prothrombin Time 13.1 Seconds (11.1-14.7)
[2023-05-04 18:27] LABS: Partial Thromboplastin Time 25.6 SECONDS (22.3-36.8)
[2023-05-04 18:28] LABS: Alanine Aminotransferase 16 U/L (6-35); Alkaline Phosphatase 79 U/L (38-126); Anion Gap 11 mmol/L (8-16); Aspartate Amino Transferase 24 U/L (14-36); Bilirubin,Total 0.5 mg/dL (0.2-1.3); Blood Urea Nitrogen 11 mg/dL (7-17); Calcium 9.4 mg/dL (8.4-10.2); Carbon Dioxide 24 mmol/L (22-30); Chloride 102 mmol/L (98-107); Estimated CRCL calculation 87 ml/min; Estimated Glomerular Filt Rate > 60; Glucose 132 mg/dL (65-110); Lipase 103 U/L (23-300); Potassium 3.4 mmol/L (3.4-5.0); Sodium 137 mmol/L (137-145)
[2023-05-04 18:40] LABS: Troponin I < 0.012 ng/mL (0.000-0.034)
[2023-05-04 20:00] VITALS: BP 189/91; PULSE 88; RESP 12; O2SAT 98
--- NOTE | 2023-05-04 20:04 | ED.ABDPAIN ---
HPI - Abdominal Pain General Chief Complaint: Chest Pain Stated Complaint: chest pain Time Seen by Provider: 05/04/23 19:12 Source: patient Limitations: no limitations History of Present Illness HPI narrative: Patient is a 52-year-old female present to the emergency department for left upper quadrant pain. Patient states the pain has been going on for the past 4 to 5 years and no one has ever told her as to what is going on she does recall 1 time leaving AGAINST MEDICAL ADVICE but has never gotten an answer to her pain. Patient notes that she gets the pain approximately twice a month and usually last a full day when she has the pain, denies radiation of the pain, describes the pain as sore and nagging and pinching. Patient admits to trying an aspirin for the pain without any relief. Patient notes that she has been having the pain all day today, constant, waxes and wanes, has not noticed anything making the pain better, has not noticed anything making the pain worse. Patient states that the pain started many years ago after she bumped her left upper quadrant on a tub. Patient admits to associated frequent urination. Patient denies dysuria, hematuria, urinary urgency, abnormal vaginal discharge, vaginal bleeding, vomiting, chest pain, shortness of breath, numbness, weakness, sore throat, melena, hematochezia, recent injuries, recent illness, fevers. Patient admits to chronic intermittent constipation and diarrhea that seem to alternate. Patient denies any new or changed medications aside from a recent anxiety medication being added but is unsure of the name. Patient admits to a chronic cough that is unchanged. Related Data Home Medications Medication Instructions Recorded Confirmed amlodipine 10 mg tablet 10 mg PO DAILY 05/02/23 05/02/23 atorvastatin 10 mg tablet (Lipitor) 10 mg PO DAILY 05/02/23 05/02/23 fluticasone propionate 50 2 spray intranasal DAILY PRN 05/02/23 05/02/23 mcg/actuation nasal Allergy Symptoms spray,suspension Allergies Allergy/AdvReac Type Severity Reaction Status Date / Time codeine Allergy Unknown Itching Verified 05/04/23 20:28 Review of Systems Review of Systems: A 10 system review of systems was completed on the patient and is negative except for what is stated in the HPI. Nursing and ancillary documentation was reviewed. [facility] Past Medical History Medical History Depression Hypertension Surgical History Surgical History History of benign breast biopsy History of section History of right knee surgery Family History Family History Mother Cerebrovascular accident Hypertension Grandparent Diabetes mellitus Hypertension Social History Social History Smoking status: Never smoker Alcohol intake: never Substance use: never Lack of Transportation: No Lack of Food: Never True Current Housing: I Have Housing Concerned About Future Housing: No Difficulty Paying Gas/Electric Bills: No Difficulty Paying for Meds: No Currently Unemployed: No Education: Grade School Difficulty w/ Childcare or Family Care: No Spiritual care concerns: No Comments At time of signature, I have reviewed and agree with nursing past medical, surgical, social and family history unless otherwise noted. Please see the nursing chart for further information. There is no relevant family history pertinent to the presenting complaint. Exam Narrative: CONST: No acute distress. Well nourished. HENMT: Head is normocephalic and atraumatic. Moist mucous membranes. No posterior oropharynx erythema. EYES: No conjunctival icterus, injection, or pallor. PERRL. NECK: No meningeal signs. No JVD. RESP: Able to speak in full sentences. Normal respiratory eff
[2023-05-04] MEDS: ACETAMINOPHEN 500 MG TABLET 1000 MG PO (20:28)
[2023-05-04] MEDS: LACTATED RINGERS 1,000 ML 999 ML IV CONT (20:28)
[2023-05-04 20:43] LABS: Appearance Urine Clear (Clear); Bacteria Urine None Seen /hpf; Bilirubin Urine Negative (Negative); Blood Urine 1+ (Negative); Color Urine Yellow (Yellow); Glucose Urine UA Negative (Negative); Ketones Urine Negative (Negative); Leukocyte Esterase Ur Negative LEU/UL (Negative); Nitrate Urine Negative (Negative); Non Pathogenic Casts 0-2; Protein Urine Negative (Negative); RBC Urine 0-2 /hpf (0-2); Specific Grav Ur 1.005 (1.001-1.035); Squamous Epithelial Cell Urine Occasional /hpf (Few); Urobilinogen Urine 0.2 mg/dL (<2.0); WBC Urine 0-5 /hpf
[2023-05-04 20:46] LABS: Creatine Kinase 34 U/L (30-135); Lactic Acid Reflex 0.9 mmol/L (0.7-2.0)
[2023-05-04 20:47] LABS: Add Urine Microscopic? YES
[2023-05-04 21:03] LABS: Troponin I < 0.012 ng/mL (0.000-0.034)
[2023-05-04 21:13] LABS: Influenza A QL RT-PCR Negative (Negative); Influenza B QL RT-PCR Negative (Negative); SARS-CoV-2 RNA PCR Negative (Negative)
[2023-05-04 21:30] VITALS: BP 140/71; PULSE 68; RESP 17; O2SAT 98
[2023-05-04 22:00] VITALS: BP 146/79; PULSE 70; RESP 20; O2SAT 98
== END 2023-05-04 22:28 | disposition home or self-care (01) ==
PROVIDERS: Emergency Medicine; Emergency Provider Student in an Organized Health Care Education/Training Program; PCP Emergency Medicine
DX: R10.32 Left lower quadrant pain (principal); I10 Essential (primary) hypertension; Z20.822 Contact with and (suspected) exposure to COVID-19; K57.90 Diverticulosis of intestine, part unspecified, without perforation or abscess without bleeding; R00.0 Tachycardia, unspecified; I44.7 Left bundle-branch block, unspecified
CPT/HCPCS: 36415; 71046; 74177; 80053; 81001; 82550; 83605; 83690; 84484; 85025; 85610; 85730; 87636; 93005; 96360; 99284; A9270; J7120; Q9967

== ENCOUNTER 2023-06-19 09:20 | Outpatient (CLI) | payer OTHER, SELFPAY ==
--- NOTE | ~2023-06-19 | XR_ITS ---
Right Knee Technique: AP, lateral, and sunrise views were obtained. Clinical History: Pain Findings: No fracture or dislocation is seen. There is evidence of prior ACL reconstruction surgery. Questionable loose bodies or spurring at the intercondylar notch. Soft tissues are unremarkable. No j oint effusion is seen. Impression: Prior ACL reconstruction surgery. Questionable loose bodies or spurring at the intercondylar notch. Reviewed, dictated and finalized at location M. RVISOR BONDING Impression: Prior ACL reconstruction surgery. Questionable loose bodies or spurring at the intercondylar notch.
== END 2023-06-19 09:21 | disposition home or self-care (01) ==
PROVIDERS: PCP Emergency Medicine; Visit Provider Emergency Medicine
DX: M25.561 Pain in right knee (principal); R93.6 Abnormal findings on diagnostic imaging of limbs
CPT/HCPCS: 73564

== ENCOUNTER 2023-09-02 08:07 | Outpatient (CLI) | payer OTHER, SELFPAY ==
--- NOTE | ~2023-09-02 | MM_ITS ---
EXAMINATION: MM screening eduard BI w roque HISTORY: Screening mammogram TECHNIQUE: Craniocaudal and mediolateral oblique 3-D tomosynthesis images were obtained and synthetic 2-D images were generated. CAD analysis was submitted and interpreted. COMPARISON: November 12, 2014 bilateral screening mammogram November 21, 2014 diagnostic right mammogram and right breast ultrasound BREAST PARENCHYMAL COMPOSITION: There are scattered areas of fibroglandular density. FINDINGS: There is asymmetry in the spiculation/architectural distortion in the posterior upper inner right breast at site of previous reportedly benign biopsy. There is diminished density at this locat ion since November 12, 2014. Otherwise there is no evidence of suspicious mass, calcification, or architectural distortion to sugg est malignancy in either breast. There has been no other suspicious interval change. IMPRESSION: 1. Post-biopsy changes in the posterior upper inner right breast; history of prior benign biopsy at t his site 2. Recommend routine screening mammography in one year. BI-RADS Category 2: Benign finding(s). Reviewed, dictated and finalized at location A. PROCESSING CHEMIST IMPRESSION: 1. Post-biopsy changes in the posterior upper inner right breast; history of pr ior benign biopsy at this site 2. Recommend routine screening mammography in one year. BI-RADS Category 2: Benign finding(s).
== END 2023-09-02 08:08 | disposition home or self-care (01) ==
LOC: ANHIMG 08:09
PROVIDERS: PCP Emergency Medicine; Visit Provider Emergency Medicine
DX: Z12.31 Encounter for screening mammogram for malignant neoplasm of breast (principal)
CPT/HCPCS: 77063; 77067

== ENCOUNTER 2024-06-26 10:13 | Emergency (ER) | payer OTHER, SELFPAY ==
--- NOTE | ~2024-06-26 | XR_ITS ---
XR chest 2V Ordering provider: Vilma Beverly PA-C History: 53 years Female with . COUGH X 2 WEEKS . Comparison: None. FINDINGS: MEDIASTINUM: The cardiac silhouette is not enlarged. LUNGS: No infiltrates, effusions or pneumothorax. Prominent bronchovascular markings in the lower lob es which may indicate bronchiolitis. Follow-up to exclude early pneumonia is advised. OTHER: No free air under the diaphragm. IMPRESSION: Prominent bronchovascular markings in the lower lobes which may indicate bronchiolitis. Follow-up to exclude early pneumonia is advised. Reviewed, dictated and finalized at location A. ER FRAME OPERATOR IMPRESSION: Prominent bronchovascular markings in the lower lobes which may indicate bronch iolitis. Follow-up to exclude early pneumonia is advised.
[2024-06-26 10:18] VITALS: BP 201/80; PULSE 93; RESP 16; TEMP 36.4; O2SAT 98
--- NOTE | 2024-06-26 12:35 | ED_ITS ---
HPI - Recheck/Abnormal Lab/Rx General Chief Complaint: Recheck/Abnormal Lab/Rx <Vilma Beverly PA-C - Last Filed: 06/26/24 18:21> Stated Complaint: pneumonia <Vilma Beverly PA-C - Last Filed: 06/26/24 18:21> Time Seen by Provider: 06/26/24 12:35 <Vilma Beverly PA-C - Last Filed: 06/26/24 18:21> Focused HPI: This is a 53 year old female that presents to the ER for continued cold symptoms. Reports sweats, headache, cough, sore throat. She was seen at urgent care and has finished a Z pack and steroids. Reports continued symptoms which prompted her to be seen again. She is out of her blood pressure medication and it has been running high. She is supposed to be on Losartan 50mg, Amlodipine 5mg. GENERAL: Well-appearing, well-nourished, and in no acute distress. HEAD: Normocephalic, atraumatic. CHEST: Clear to auscultation. ?No respiratory distress. HEART: Regular rate and rhythm.? NEURO: ?Alert and oriented x3. Patient screened in triage and initial orders placed.? ?Additional care and disposition to be based upon?diagnostic testing and treatment. <Vilma Beverly PA-C - Last Filed: 06/26/24 18:21> History of Present Illness HPI narrative: I agree with the above HPI <Eder Paul MD - Last Filed: 06/26/24 19:22> Related Data Allergies/Adverse Reactions: Allergies Allergy/AdvReac Type Severity Reaction Status Date / Time codeine Allergy Unknown Itching Verified 06/19/24 13:27 <Vilma Beverly PA-C - Last Filed: 06/26/24 18:21> Review of Systems Review of Systems: All systems reviewed & are unremarkable except as noted in HPI and below <Eder Paul MD - Last Filed: 06/26/24 19:22> PMFSH Past Medical History Medical History: Medical History Depression Hypertension <Vilma Beverly PA-C - Last Filed: 06/26/24 18:21> Surgical History Surgical History: Surgical History History of benign breast biopsy History of section History of right knee surgery <Vilma Beverly PA-C - Last Filed: 06/26/24 18:21> Family History Family History: Family History Mother Cerebrovascular accident Hypertension Grandparent Diabetes mellitus Hypertension <Vilma Beverly PA-C - Last Filed: 06/26/24 18:21> Social History Social History: Social History Smoking status: Never smoker Alcohol intake: never Substance use: never Lack of Transportation: No Lack of Food: Never True Current Housing: I Have Housing Concerned About Future Housing: No Difficulty Paying Gas/Electric Bills: No Difficulty Paying for Meds: No Currently Unemployed: No Education: Grade School Difficulty w/ Childcare or Family Care: No Spiritual care concerns: No <Vilma Beverly PA-C - Last Filed: 06/26/24 18:21> Exam Narrative: APPEARANCE: Well appearing, no pain, no distress, well-nourished. HEAD: normocephalic, atraumatic. EYES: PERRLA/EOMI, conjunctivae clear. NOSE: Normal no drainage EARS:TMS clear with good light reflex. THROAT: Pharynx clear, no exudate. NECK: Supple. No adenopathy, no masses. RESPIRATORY: Airway patent, respirations nonlabored. Clear to auscultation bilaterally, no rales, rhonchi, wheezing. CARDIOVASCULAR: Regular rate and rhythm without murmurs rubs or gallops. ABDOMINAL: Soft, nontender, nondistended, normal bowel sounds MUSCULOSKELETAL: Moves all extremities. Strength/ROM intact, No edema, No calf tenderness. NEURO: Alert. Cranial nerves II through XII intact. grossly intact SKIN: Warm, dry. Normal Color <Eder Paul MD - Last Filed: 06/26/24 19:22> Course Vital Signs Vital signs: Vital Signs Temperature 97.6 F 06/26/24 10:18 Pulse Rate 93 06/26/24 10:18 Respiratory Rate 16 11/13/24 10:18 Blood Pressure 201/80 H 06/26/24 10:18 Pulse Oximetry 98 06/26/24 10:18 Temperature 97.6 F 06/26/24 15:27 Pulse Rate 86 06/26/24 15:27 Respiratory Rate 20 06/26/24 15:27 Blood Pressure 163/108 H 06/26/24 15:27 Pulse Oximetry 97 06/26/24 15:27 <Vilma Beverly PA-C - Last Filed: 06/26/24 18:21> Vital Signs Temperature 97.6 F 06/26/24 10:18 Pulse Rate 93 06/26/24 10:18 Respiratory Rate 16 06/26/24 10:18 Blood Pressure 201/80 H 06/26/24 10:18 Pulse Oximetry 98 06/26/24 10:18 Temperature 97.6 F 06/26/24 15:27 Pulse Rate 86 06/26/24 15:27 Respiratory Rate 20 06/26/24 15:27 Blood Pressure 163/108 H 06/26/24 15:27 Pulse Oximetry 97 06/26/24 15:27 <Eder Paul MD - Last Filed: 06/26/24 19:22> MDM - Recheck/Abnormal Lab/Rx MDM Narrative Medical decision making narrative: 53-year-old female presented to the emergency department for evaluation of worsening respiratory symptoms after recently completing a course of antibiotics for suspected pneumonia. Chest x-ray does show bronchitis versus pneumonia. Patient is still symptomatic. Patient is afebrile but does have a leukocytosis of 20.2 and hemoglobin of 16.7. No acute abnormalities on the patient's CMP. Patient was negative for influenza RSV COVID and strep. Patient was updated on the results of the workup planned for treatment for additional antibiotics. While patient was only on the single agent of azithromycin for her last pneumonia treatment patient will be started on doxy and Augmentin for the 2nd round. Patient will also be started on albuterol and Tessalon Perles. Pat ient was strongly encouraged close follow-up with primary care physician. All questions concerns were addressed. Patient was comfortable the plan for discharge and follow <Eder Paul MD - Last Filed: 06/26/24 19:22> Differential Diagnosis Differential diagnosis: Likely other ( pneumonia, influenza, RSV) <Eder Paul MD - Last Filed: 06/26/24 19:22> Lab Data Attestation: I reviewed the patient's lab results. <Eder Paul MD - Last Filed: 06/26/24 19:22> Result diagrams: 06/26/24 12:51 06/26/24 12:51 <Vilma Beverly PA-C - Last Filed: 06/26/24 18:21> Labs: Lab Results 06/26/24 Range/Units 12:51 WBC 20.2 H (4.5-10.0) K/mm3 RBC 5.56 H (4.2-5.4) M/mm3 Hgb 16.7 H (12.0-15.0) g/dL Hct 48.4 H (37.0-47.0) % MCV 87.1 (80-100) fl MCH 30.0 (26-34) pg MCHC 34.5 (32-36) g/dl RDW 12.0 (11.5-14.5) % Plt Count 440 H (150-375) k/mm3 MPV 10.8 H (7.4-10.4) fl Immature Gran % (Auto) 1.8 H (0-0.5) % Neut % (Auto) 70.9 (45.5-73.1) % Lymph % (Auto) 19.8 (18.3-44.2) % Divide % (Auto) 5.6 (2.6-8.5) % Eos % (Auto) 1.4 (0-4.4) % Baso % (Auto) 0.5 (0.2-1.2) % Lymph # (Auto) 4.01 H (0.9-3.2) K/mm3 Divide # (Auto) 1.1 H (0.1-0.6) K/mm3 Eos # (Auto) 0.3 (0-0.3) K/mm3 Baso # (Auto) 0.1 (0.0-0.1) K/mm3 Abs Immat Gran (auto) 0.37 H (0.00-0.031) K/mm3 Absolute Neuts (auto) 14.3 H (1.3-6.7) K/mm3 Absolute Nucleated RBC 0.000 (0.0-0.012) K/mm3 Nucleated RBC % 0.0 (0.0-0.2) % Atypical Lymphocytes Present Platelet Estimate Slightly increased (Adequate) Schistocytes None seen Sodium 138 (137-145) mmol/L Potassium 4.0 (3.4-5.0) mmol/L Chloride 101 (98-107) mmol/L Carbon Dioxide 25 (22-30) mmol/L Anion Gap 12 (4-12) mmol/L BUN 14 (7-17) mg/dL Creatinine 0.70 (0.7-1.0) mg/dL Estim Creat Clear Calc 59 ml/min Estimated GFR > 60 (59 - ) Glucose 115 H (65-110) mg/dL Calcium 9.9 (8.4-10.2) mg/dL Total Bilirubin 0.4 (0.2-1.3) mg/dL AST 26 (14-36) U/L ALT 14 (6-35) U/L Alkaline Phosphatase 84 (38-126) U/L Total Protein 9.0 H (6.3-8.2) g/dL Albumin 4.9 (3.5-5.1) g/dL Influenza A (RT-PCR) Negative (Negative) Influenza B (RT-PCR) Negative (Negative) RSV (RT-PCR) Negative (Negative) SARS-CoV-2 RNA (RT-PCR) Negative (Negative) Group A Strep (PCR) Not detected (Negative) <Vilma Beverly PA-C - Last Filed: 06/26/24 18:21> Lab Results 06/26/24 Range/Units 12:51 WBC 20.2 H (4.5-10.0) K/mm3 RBC 5.56 H (4.2-5.4) M/mm3 Hgb 16.7 H (12.0-15.0) g/dL Hct 48.4 H (37.0-47.0) % MCV 87.1 (80-100) fl MCH 30.0 (26-34) pg MCHC 34.5 (32-36) g/dl RDW 12.0 (11.5-14.5) % Plt Count 440 H (150-375) k/mm3 MPV 10.8 H (7.4-10.4) fl Immature Gran % (Auto) 1.8 H (0-0.5) % Neut % (Auto) 70.9 (45.5-73.1) % Lymph % (Auto) 19.8 (18.3-44.2) % Divide % (Auto) 5.6 (2.6-8.5) % Eos % (Auto) 1.4 (0-4.4) % Baso % (Auto) 0.5 (0.2-1.2) % Lymph # (Auto) 4.01 H (0.9-3.2) K/mm3 Divide # (Auto) 1.1 H (0.1-0.6) K/mm3 Eos # (Auto) 0.3 (0-0.3) K/mm3 Baso # (Auto) 0.1 (0.0-0.1) K/mm3 Abs Immat Gran (auto) 0.37 H (0.00-0.031) K/mm3 Absolute Neuts (auto) 14.3 H (1.3-6.7) K/mm3 Absolute Nucleated RBC 0.000 (0.0-0.012) K/mm3 Nucleated RBC % 0.0 (0.0-0.2) % Atypical Lymphocytes Present Platelet Estimate Slightly increased (Adequate) Schistocytes None seen Sodium 138 (137-145) mmol/L Potassium 4.0 (3.4-5.0) mmol/L Chloride 101 (98-107) mmol/L Carbon Dioxide 25 (22-30) mmol/L Anion Gap 12 (4-12) mmol/L BUN 14 (7-17) mg/dL Creatinine 0.70 (0.7-1.0) mg/dL Estim Creat Clear Calc 59 ml/min Estimated GFR > 60 (59 - ) Glucose 115 H (65-110) mg/dL Calcium 9.9 (8.4-10.2) mg/dL Total Bilirubin 0.4 (0.2-1.3) mg/dL AST 26 (14-36) U/L ALT 14 (6-35) U/L Alkaline Phosphatase 84 (38-126) U/L Total Protein 9.0 H (6.3-8.2) g/dL Albumin 4.9 (3.5-5.1) g/dL Influenza A (RT-PCR) Negative (Negative) Influenza B (RT-PCR) Negative (Negative) RSV (RT-PCR) Negative (Negative) SARS-CoV-2 RNA (RT-PCR) Negative (Negative) Group A Strep (PCR) Not detected (Negative) <Eder Paul MD - Last Filed: 06/26/24 19:22> Imaging Data Radiologist's impression: ITS Impressions Chest X-Ray 06/26/24 13:13 IMPRESSION: Prominent bronchovascular markings in the lower lobes which may indicate bronchiolitis. Follow-up to exclude early pneumonia is advised. <Vilma Beverly PA-C - Last Filed: 06/26/24 18:21> Critical Care Time Critical Care Time Critical Care Time: No <Vilma Beverly PA-C - Last Filed: 06/26/24 18:21> Discharge Plan Discharge Clinical Impression: Pneumonia Qualifiers: Pneumonia type: due to unspecified organism Laterality: bilateral Lung location: lower lobe of lung Qualified Code(s): J18.9 - Pneumonia, unspecified organism <Vilma Beverly PA-C - Last Filed: 06/26/24 18:21> Patient Disposition: Home, Self-Care <Vilma Beverly PA-C - Last Filed: 06/26/24 18:21> Condition: Stable <Vilma Beverly PA-C - Last Filed: 06/26/24 18:21> Instructions: Antibiotic Form, Normal Exam (ED), Pneumonia (ED) <Vilma Beverly PA-C - Last Filed: 06/26/24 18:21> Additional Instructions: antibiotic as directed until completed. Albuterol for shortness of breath. Tessalon Perles for cough. Have close follow-up with your primary care physician. If you have any worsening symptoms then please call or return to the emergency department. <Vilma Beverly PA-C - Last Filed: 06/26/24 18:21> Prescriptions: New amoxicillin-pot clavulanate 875-125 mg tablet 1 tablet PO Q12H Qty: 14 0RF doxycycline monohydrate 100 mg capsule 100 mg PO BID 7 Days Qty: 14 0RF albuterol sulfate 90 mcg/actuation HFA aerosol inhaler 1 inh inhalation QID PRN (Reason: shortness of breath or wheezing) Qty: 6.7 0RF benzonatate 100 mg capsule 100 mg PO BID PRN (Reason: cough) Qty: 14 0RF No Action azithromycin 250 mg tablet See Rx Instructions .ROUTE .COMPLEX Qty: 6 0RF Rx Instructions: For 250 mg dose pack: take 500 mg today (day 1), then 250 mg for 4 days (days 2-5) prednisone 50 mg tablet 50 mg PO DAILY Qty: 5 0RF <Vilma Beverly PA-C - Last Filed: 06/26/24 18:21> Follow-up/Referrals: UNKNOWN,DOCTOR [Primary Care Provider] - <Vilma Beverly PA-C - Last Filed: 06/26/24 18:21>
--- NOTE | 2024-06-26 12:38 | ECG_ITS ---
Test Date: 2024-06-26 12:45:18 Measurements Intervals [place] Rate: 89 P: 18 [place]: 127 QRS: 32 QRSD: 82 T: 13 QT: 348 QTc: 425 Interpretive Statements SINUS RHYTHM NONSPECIFIC ST & T-WAVE ABNORMALITY- DIFFUSE LEADS BASELINE ARTIFACT- I, II, III, AVR, AVL, AVF BORDERLINE ECG No previous ECG available for comparison Electronically Signed On 06-26-2024 12:47:32 RESPIRATORY SUPERVISOR by Dickson Mart D.O.
[2024-06-26 12:55] VITALS: PULSE 80; RESP 16
[2024-06-26] MEDS: IPRATROPIUM 0.5 MG/ALBUTEROL SULFATE 2.5 MG AMPUL.NEB 3 ML INHALATION (12:55)
[2024-06-26 13:03] VITALS: PULSE 88; RESP 16
[2024-06-26] MEDS: ACETAMINOPHEN 500 MG TABLET 1000 MG PO (13:34)
[2024-06-26] MEDS: LOSARTAN POTASSIUM 50 MG TABLET PO (13:34)
[2024-06-26] MEDS: amLODIPine BESYLATE 5 MG TABLET PO (13:34)
[2024-06-26 13:36] VITALS: BP 177/86; PULSE 87; RESP 18; O2SAT 97
[2024-06-26 13:43] LABS: Strep Group A RT-PCR NOT DETECTED (Negative)
[2024-06-26 13:48] LABS: Basophils Absolute Auto 0.1 K/mm3 (0.0-0.1); Basophils Percent Auto 0.5 % (0.2-1.2); Eosinophils Absolute Auto 0.3 K/mm3 (0-0.3); Eosinophils Percent Auto 1.4 % (0-4.4); Hematocrit 48.4 % (37.0-47.0); Hemoglobin 16.7 g/dL (12.0-15.0); Immature Granulocyte Absolute 0.37 K/mm3 (0.00-0.031); Immature Granulocyte Percent A 1.8 % (0-0.5); Lymphocytes Absolute Auto 4.01 K/mm3 (0.9-3.2); Lymphocytes Percent Auto 19.8 % (18.3-44.2); Mean Corpuscular HGB Conc 34.5 g/dl (32-36); Mean Corpuscular Volume 87.1 fl (80-100); Mean Platelet Volume 10.8 fl (7.4-10.4); Monocytes Absolute Auto 1.1 K/mm3 (0.1-0.6); Monocytes Percent Auto 5.6 % (2.6-8.5); Neutrophils Absolute Auto 14.3 K/mm3 (1.3-6.7); Neutrophils Percent Auto 70.9 % (45.5-73.1); Platelet Count Result 440 k/mm3 (150-375); Red Blood Count 5.56 M/mm3 (4.2-5.4); White Blood Count 20.2 K/mm3 (4.5-10.0)
[2024-06-26 13:55] LABS: Influenza A QL RT-PCR Negative (Negative); Influenza B QL RT-PCR Negative (Negative); RSV RNA, RT-PCR Negative (Negative); SARS-CoV-2 RNA PCR Negative (Negative)
[2024-06-26 14:15] LABS: Alanine Aminotransferase 14 U/L (6-35); Albumin Level 4.9 g/dL (3.5-5.1); Alkaline Phosphatase 84 U/L (38-126); Anion Gap 12 mmol/L (4-12); Aspartate Amino Transferase 26 U/L (14-36); Bilirubin,Total 0.4 mg/dL (0.2-1.3); Blood Urea Nitrogen 14 mg/dL (7-17); Calcium 9.9 mg/dL (8.4-10.2); Carbon Dioxide 25 mmol/L (22-30); Chloride 101 mmol/L (98-107); Estimated CRCL calculation 59 ml/min; Estimated Glomerular Filt Rate > 60; Glucose 115 mg/dL (65-110); Sodium 138 mmol/L (137-145)
[2024-06-26 14:16] LABS: Atypical Lymphocytes Present; Platelet Estimate Slightly Increased (Adequate); Schistocytes None Seen
[2024-06-26 15:27] VITALS: BP 163/108; PULSE 86; RESP 20; TEMP 36.4; O2SAT 97
== END 2024-06-26 15:29 | disposition home or self-care (01) ==
PROVIDERS: Physician Assistant; Emergency Provider Emergency Medicine
DX: J18.9 Pneumonia, unspecified organism (principal); Z20.822 Contact with and (suspected) exposure to COVID-19; I10 Essential (primary) hypertension; R94.31 Abnormal electrocardiogram [ECG] [EKG]
CPT/HCPCS: 36415; 71046; 80053; 85025; 87637; 87651; 93005; 94640; 99283; A9270